=== PATIENT | female | born 1990 | race Two or more races ===

== ENCOUNTER 2018-09-20 18:42 | Outpatient (CLI) | payer OTHER ==
[~2018-09-20] VITALS: Ht 157.5 cm; Wt 81.0 kg
[2018-09-20 19:36] LABS: MICROSCOPIC NOT IND
== END 2018-09-20 20:20 | disposition home or self-care (01) ==
LOC: LDOP 18:42
PROVIDERS: ATTEND Obstetrics & Gynecology
DX: O26.892 Other specified pregnancy related conditions, second trimester (principal); R10.2 Pelvic and perineal pain; Z3A.21 21 weeks gestation of pregnancy
CPT/HCPCS: 59025; 81003; 87086; 99201; G0463

== ENCOUNTER 2018-11-19 10:29 | Emergency (ER) | payer OTHER ==
[~2018-11-19] VITALS: Ht 154.9 cm; Wt 84.5 kg
[2018-11-19] MEDS ORDERED: SODIUM CHLORIDE FLUSH 10ML SYR IVF ONE (11:00)
[2018-11-19 11:11] LABS: BASOPHILS # (AUTO) 0.04 x10^3/uL (0-0.1); BASOPHILS % (AUTO) 1 % (0-1); EOSINOPHILS % (AUTO) 1 % (1-7); LYMPHOCYTES # (AUTO) 2.14 x10^3/uL (1-3.4); LYMPHOCYTES % (AUTO) 26 % (22-44); MD NO; MEAN CORPUSCULAR HEMOGLOBIN 29.6 pg (27.0-34.8); MEAN PLATELET VOLUME 8.7 fL (7.4-10.4); MONOCYTES # (AUTO) 0.37 x10^3/uL (0.2-0.8); MONOCYTES % (AUTO) 5 % (2-9); NEUTROPHILS # (AUTO) 5.66 x10^3/uL (1.8-6.8); NEUTROPHILS % (AUTO) 68 % (42-75); PLATELET COUNT 316 x10^3/uL (130-400); RED BLOOD COUNT 4.31 x10^6/uL (3.82-5.3); RED CELL DISTRIBUTION WIDTH 13.7 % (9.6-15.2)
[2018-11-19 11:24] LABS: CALCIUM 8.2 mg/dL (8.5-10.1); CHLORIDE 111 mmol/L (98-107)
[2018-11-19 11:27] LABS: ALBUMIN 2.6 g/dL (3.4-5.0); ALKALINE PHOSPHATASE 80 U/L (45-117); ANION GAP 9 mmol/L (5-15); BILIRUBIN,TOTAL 0.3 mg/dL (0.2-1.0); TOTAL PROTEIN 6.9 g/dL (6.4-8.2)
[2018-11-19 11:28] LABS: ALANINE AMINOTRANSFERASE 25 U/L (12-78); CREATININE 0.61 mg/dL (0.55-1.02)
[2018-11-19] MEDS ORDERED: ACETAMINOPHEN 500 MG TABLET ONE ×2 (11:50→11:57)
[2018-11-19] MEDS ORDERED: LIDOCAINE-MPF 1%, 5ML ONE (11:52)
[2018-11-19] MEDS ORDERED: ACETAMINOPHEN 500 MG TABLET PO ONE (12:00)
[2018-11-19] MEDS ORDERED: LIDOCAINE 1%, 10ML INFIL ONE (12:00)
--- NOTE | 2018-11-19 13:19 | NUR ---
URINE SENT, PT STATES SHE HAS DECREASED PAIN. PT RESTING
--- NOTE | 2018-11-19 13:24 | NUR ---
VERIFIED WHO THE HOSPITALIST WAS THAT NEEDED TO SEE PT, PT HAS NOT YET BEEN SEEN TODAY. SPOKE WITH PT AND FAMILY REGARDING THIS
[2018-11-19 13:29] LABS: MICROSCOPIC INDICATED
[2018-11-19 13:37] LABS: CULTURE INDICATED? YES
[2018-11-19 14:00] VITALS: BP 122/62
== END 2018-11-19 14:02 | disposition home or self-care (01) ==
LOC: ED 11:46
DX: O26.893 Other specified pregnancy related conditions, third trimester (principal); G44.209 Tension-type headache, unspecified, not intractable; Z3A.29 29 weeks gestation of pregnancy
CPT/HCPCS: 36415; 64405; 80053; 81001; 85025; 87086; 99284

== ENCOUNTER 2019-01-09 05:36 | Inpatient (IN) | payer OTHER ==
[~2019-01-09] VITALS: Ht 154.9 cm; Wt 85.9 kg
[2019-01-09] VITALS (22 sets, daily range): BP systolic 88–118; BP diastolic 46–73
[~2019-01-09 05:36] MED LIST: LACTATED RINGERS 1,000 ML IV SCH
[2019-01-09] MEDS ORDERED: METOCLOPRAMIDE 5 MG/ML, 2ML IV ONE (06:00)
[2019-01-09] MEDS ORDERED: LACTATED RINGERS 1,000 ML IVBOLUS ONE (06:00)
[2019-01-09] MEDS ORDERED: SODIUM CITRATE/CITRIC ACID 15 ML UDC PO ONE (06:00)
[2019-01-09] MEDS ORDERED: PREN-3 PO (06:04)
[2019-01-09 06:15] LABS: BASOPHILS # (AUTO) 0.03 x10^3/uL (0-0.1); BASOPHILS % (AUTO) 0 % (0-1); EOSINOPHILS # (AUTO) 0.13 x10^3/uL (0-0.4); EOSINOPHILS % (AUTO) 2 % (1-7); LYMPHOCYTES # (AUTO) 2.11 x10^3/uL (1-3.4); LYMPHOCYTES % (AUTO) 24 % (22-44); MD NO; MEAN CORPUSCULAR HGB CONC 33.8 g/dL (32.4-35.8); MEAN PLATELET VOLUME 8.7 fL (7.4-10.4); MONOCYTES # (AUTO) 0.62 x10^3/uL (0.2-0.8); MONOCYTES % (AUTO) 7 % (2-9); NEUTROPHILS # (AUTO) 5.91 x10^3/uL (1.8-6.8); NEUTROPHILS % (AUTO) 67 % (42-75); PLATELET COUNT 275 x10^3/uL (130-400); RED BLOOD COUNT 4.15 x10^6/uL (3.82-5.3); RED CELL DISTRIBUTION WIDTH 15.1 % (9.6-15.2)
[2019-01-09] MEDS ORDERED: NEWBORN KIT ONE (06:16)
[2019-01-09] MEDS ORDERED: SODIUM CITRATE/CITRIC ACID 15 ML UDC ONE (06:17)
[2019-01-09] MEDS ORDERED: METOCLOPRAMIDE 5 MG/ML, 2ML ONE (06:17)
[2019-01-09] MEDS ORDERED: OXYTOCIN 30U/ 0.9% NaCL 500ML 500 ML ONE (06:17)
[2019-01-09] MEDS ORDERED: morphine SULFATE/PF 0.5 MG/ML, 10ML ONE (07:18)
[2019-01-09] MEDS: LACTATED RINGERS 1,000 ML IV SCH ×5 (07:25→23:43)
[2019-01-09] MEDS ORDERED: ACETAMINOPHEN 325 MG TABLET PO PRN ×2 (07:30)
[2019-01-09] MEDS ORDERED: MEASLES,MUMPS&RUBELLA VACC/PF 0.5 ML SQ-VACC PRN (07:30)
[2019-01-09] MEDS ORDERED: ONDANSETRON 2MG/ML, 2ML IV PRN (07:30)
[2019-01-09] MEDS ORDERED: DIPH,PERTUSS(ACELL),TET VAC/PF NC IM-VACC PRN (07:30)
[2019-01-09] MEDS ORDERED: SIMETHICONE 80 MG CHEW TAB PO PRN (07:30)
[2019-01-09] MEDS ORDERED: morphine SULFATE 10 MG/ML, 1ML IM PRN (07:30)
[2019-01-09] MEDS ORDERED: MORPHINE SULFATE 4 MG/ML, 1ML IVPush PRN (07:30)
[2019-01-09] MEDS ORDERED: MISOPROSTOL 200 MCG TABLET PR PRN (07:30)
[2019-01-09] MEDS ORDERED: ONDANSETRON 2MG/ML, 2ML ONE (07:42)
[2019-01-09] MEDS ORDERED: SODIUM CHLORIDE 0.9% PF 10ML ONE (07:42)
[2019-01-09] MEDS ORDERED: OXYTOCIN 10 UNITS/ML, 1ML ONE ×2 (07:42→07:56)
[2019-01-09] MEDS ORDERED: CEFAZOLIN 1,000 MG ONE (07:42)
[2019-01-09] MEDS ORDERED: PHENYLEPHRINE 10 MG/ML ONE (07:42)
[2019-01-09] MEDS ORDERED: KETOROLAC 30 MG/1 ML ONE (07:42)
[2019-01-09] MEDS ORDERED: DEXAMETHASONE 4 MG/ML, 1ML ONE (07:42)
[2019-01-09] MEDS: PRENATAL VIT/IRON/FA 1 EACH TABLET PO SCH (09:00)
[2019-01-09] MEDS: OXYTOCIN 30U/ 0.9% NaCL 500ML 500 ML IV SCH ×2 (09:06→19:47)
[2019-01-09] MEDS ORDERED: METOPROLOL 1 MG/ML, 5ML ONE (10:52)
[2019-01-09] MEDS ORDERED: METOPROLOL 1 MG/ML, 5ML IVPush ONE ×3 (11:00→12:00)
[2019-01-09] MEDS ORDERED: FENTANYL PF 100 MCG/2ML IV ONE (14:00)
[2019-01-09] MEDS ORDERED: MIDAZOLAM 1 MG/ML, 2ML IV ONE (14:00)
[2019-01-09] MEDS ORDERED: PROPOFOL 10 MG/ML, 20ML ONE (14:45)
[2019-01-09 16:21] LABS: BASOPHILS # (AUTO) 0.03 x10^3/uL (0-0.1); BASOPHILS % (AUTO) 0 % (0-1); EOSINOPHILS # (AUTO) 0.01 x10^3/uL (0-0.4); EOSINOPHILS % (AUTO) 0 % (1-7); LYMPHOCYTES # (AUTO) 1.42 x10^3/uL (1-3.4); LYMPHOCYTES % (AUTO) 9 % (22-44); MD NO; MEAN CORPUSCULAR HGB CONC 33.7 g/dL (32.4-35.8); MEAN CORPUSCULAR VOLUME 85.8 fL (80-100); MONOCYTES % (AUTO) 3 % (2-9); NEUTROPHILS # (AUTO) 14.19 x10^3/uL (1.8-6.8); NEUTROPHILS % (AUTO) 88 % (42-75); PLATELET COUNT 305 x10^3/uL (130-400); RED BLOOD COUNT 3.96 x10^6/uL (3.82-5.3); RED CELL DISTRIBUTION WIDTH 14.5 % (9.6-15.2)
[2019-01-09] MEDS: OXYcodone/APAP 5/325MG TABLET PO PRN (20:46)
[2019-01-10 00:56] VITALS: BP 97/63
[2019-01-10] MEDS: LACTATED RINGERS 1,000 ML IV SCH ×6 (03:30→23:43)
[2019-01-10] MEDS: OXYTOCIN 30U/ 0.9% NaCL 500ML 500 ML IV SCH ×3 (03:30→23:43)
[2019-01-10] MEDS: OXYcodone/APAP 5/325MG TABLET PO PRN ×5 (03:39→21:07)
[2019-01-10 06:18] LABS: ANION GAP 8 mmol/L (5-15); CALCIUM 7.9 mg/dL (8.5-10.1); CHLORIDE 110 mmol/L (98-107)
[2019-01-10 06:21] LABS: CREATININE 0.42 mg/dL (0.55-1.02)
[2019-01-10 06:57] VITALS: BP 111/74
[2019-01-10] MEDS: PRENATAL VIT/IRON/FA 1 EACH TABLET PO SCH (07:21)
[2019-01-10 15:30] VITALS: BP 95/58
[2019-01-10 20:45] VITALS: BP 125/88
[2019-01-10] MEDS: DOCUSATE 100 MG CAPSULE PO PRN (21:07)
[2019-01-11] MEDS: OXYcodone/APAP 5/325MG TABLET PO PRN (02:00)
[2019-01-11 07:22] VITALS: BP 102/68
[2019-01-11] MEDS: LACTATED RINGERS 1,000 ML IV SCH ×5 (07:25→23:25)
[2019-01-11] MEDS: PRENATAL VIT/IRON/FA 1 EACH TABLET PO SCH (08:22)
[2019-01-11] MEDS: DOCUSATE 100 MG CAPSULE PO PRN ×2 (08:22→21:24)
[2019-01-11] MEDS: IBUPROFEN 600 MG TABLET PO PRN ×3 (08:22→21:24)
[2019-01-11] MEDS: OXYTOCIN 30U/ 0.9% NaCL 500ML 500 ML IV SCH ×2 (09:25→19:25)
[2019-01-11 19:40] VITALS: BP 115/76
[2019-01-12] MEDS: OXYcodone/APAP 5/325MG TABLET PO PRN (02:20)
[2019-01-12] MEDS: OXYTOCIN 30U/ 0.9% NaCL 500ML 500 ML IV SCH ×2 (05:25→15:25)
[2019-01-12] MEDS: LACTATED RINGERS 1,000 ML IV SCH ×5 (05:25→23:25)
[2019-01-12 08:11] VITALS: BP 123/78
[2019-01-12] MEDS: PRENATAL VIT/IRON/FA 1 EACH TABLET PO SCH (09:03)
[2019-01-12] MEDS: DOCUSATE 100 MG CAPSULE PO PRN ×2 (09:03→21:16)
[2019-01-12] MEDS: IBUPROFEN 600 MG TABLET PO PRN ×3 (09:03→21:16)
[2019-01-12 20:00] VITALS: BP 118/79
[2019-01-13] MEDS: IBUPROFEN 600 MG TABLET PO PRN ×2 (03:47→09:57)
[2019-01-13 08:03] VITALS: BP 128/79
[2019-01-13] MEDS: PRENATAL VIT/IRON/FA 1 EACH TABLET PO SCH ×2 (09:00→09:57)
[2019-01-13] MEDS: DOCUSATE 100 MG CAPSULE PO PRN (09:57)
[2019-01-13] MEDS ORDERED: IBUP-1222 PO (10:13)
[2019-01-13] MEDS ORDERED: OXYC-302 PO (10:13)
== END 2019-01-13 13:00 | disposition home or self-care (01) | DRG 788 ==
LOC: LDIP 05:36 → 5SO 10:49 → 2NW 01-10 11:38
PROVIDERS: ADMIT Obstetrics & Gynecology; ATTEND Obstetrics & Gynecology
PROC: 5A2204Z Restoration of Cardiac Rhythm, Single (ICD-10-PCS; 2019-01-09)
PROC: 10D00Z1 Extraction of Products of Conception, Low, Open Approach (ICD-10-PCS; principal; 2019-01-09 14:45)
DX: O34.13 Maternal care for benign tumor of corpus uteri, third trimester (principal); O32.2XX0 Maternal care for transverse and oblique lie, not applicable or unspecified; O76 Abnormality in fetal heart rate and rhythm complicating labor and delivery; I48.91 Unspecified atrial fibrillation; D25.9 Leiomyoma of uterus, unspecified; Z3A.37 37 weeks gestation of pregnancy; Z37.0 Single live birth
CPT/HCPCS: 36415; 80048; 82803; 85025; 86850; 86900; 86923; 92960; 93005; 93306; G0378; J0690; J1100; J1885; J2274; J2405; J2704; J2370; J2590; J2765; J7120

== ENCOUNTER 2020-12-07 18:11 | Emergency (ER) | payer OTHER ==
[~2020-12-07] VITALS: Ht 154.9 cm; Wt 88.0 kg
[~2020-12-07 18:11] MED LIST changes: +IBUP-1222 PO; -LACTATED RINGERS 1,000 ML IV SCH; +OXYC1TAB14 PO; +PREN-3 PO
[2020-12-07 18:45] LABS: BASOPHILS % (AUTO) 0 % (0-1); EOSINOPHILS % (AUTO) 1 % (1-7); LYMPHOCYTES % (AUTO) 14 % (22-44); MD NO; MEAN CORPUSCULAR HEMOGLOBIN 28.1 pg (27.0-34.8); MEAN CORPUSCULAR HGB CONC 33.3 g/dL (32.4-35.8); MEAN PLATELET VOLUME 8.6 fL (7.4-10.4); MONOCYTES % (AUTO) 5 % (2-9); NEUTROPHILS % (AUTO) 80 % (42-75); PLATELET COUNT 292 x10^3/uL (130-400); RED BLOOD COUNT 5.23 x10^6/uL (3.82-5.3); RED CELL DISTRIBUTION WIDTH 15.9 % (9.6-15.2)
[2020-12-07 18:55] LABS: ALANINE AMINOTRANSFERASE 25 U/L (12-78); ALBUMIN 3.4 g/dL (3.4-5.0); ANION GAP 7 mmol/L (5-15); CALCIUM 8.3 mg/dL (8.5-10.1); CHLORIDE 108 mmol/L (98-107); CREATININE 0.81 mg/dL (0.55-1.02)
[2020-12-07 18:59] LABS: ALKALINE PHOSPHATASE 72 U/L (45-117); BILIRUBIN,TOTAL 0.2 mg/dL (0.2-1.0); TOTAL PROTEIN 7.9 g/dL (6.4-8.2)
[2020-12-07 21:29] LABS: MICROSCOPIC INDICATED
[2020-12-07 21:57] VITALS: BP 110/62
== END 2020-12-07 22:34 | disposition home or self-care (01) ==
LOC: ED 21:14
DX: R51.9 Headache, unspecified (principal); M54.5 Low back pain
CPT/HCPCS: 36415; 80053; 81001; 84703; 85025; 99283